=== PATIENT | male | born 1945 ===

== ENCOUNTER 2017-11-10 07:55 | Day surgery (SDC) | payer MEDICARE, BC ==
[~2017-11-10] VITALS: Ht 185.4 cm; Wt 111.1 kg
[~2017-11-10 07:55] MED LIST: ALLOPURINOL100 MG PO; LIPITOR20 MG PO
[2017-11-10] MEDS ORDERED: FISH OIL 1,0001 EAC2 NG (08:12)
[2017-11-10] MEDS ORDERED: VITAMIN D35000 UNI1 PO (08:12)
[2017-11-10] MEDS ORDERED: MAGNESIUM250 M1 PO (08:13)
[2017-11-10] MEDS ORDERED: VITAMIN B122500 MCG PO (08:13)
[2017-11-10] MEDS ORDERED: ZINC50 MG PO (08:13)
[2017-11-10] MEDS ORDERED: CALCIUM500 MG PO (08:14)
== END 2017-11-10 10:25 | disposition home or self-care (01) ==
LOC: DSVR 07:55 → OPS 07:55 → DS 09:15 → OPS 10:25
PROVIDERS: Ophthalmology
PROC: 08RJ3JZ Replacement of Right Lens with Synthetic Substitute, Percutaneous Approach (ICD-10-PCS; principal; 2017-11-10 09:15)
DX: H25.13 Age-related nuclear cataract, bilateral (principal); E78.00 Pure hypercholesterolemia, unspecified; M10.9 Gout, unspecified; Z87.891 Personal history of nicotine dependence; Z95.5 Presence of coronary angioplasty implant and graft; Z79.899 Other long term (current) drug therapy
CPT/HCPCS: J2250